=== PATIENT | female | born 1985 | race Caucasian/White ===

== ENCOUNTER 2021-03-21 06:02 | Day surgery (SDC) | payer OTHER ==
[~2021-03-21 06:02] MED LIST: Dextrose 5%-0.45% NaCl 1,000 ML IV SCH; Midazolam 1 MG/ML 2 ML SDV ONE; Sodium Chloride 0.9% 10 ML Syringe FLUSH PRN; fentaNYL 100 MCG/2 ML SDV ONE
[2021-03-21] MEDS ORDERED: Midazolam 1 MG/ML 2 ML SDV IV ONE ×7 (06:03→07:07)
[2021-03-21] MEDS ORDERED: fentaNYL 100 MCG/2 ML SDV IV ONE ×5 (06:03→07:10)
--- NOTE | 2021-03-21 07:46 | OR ---
DATE: 03/21/2021 PROCEDURE: Total colonoscopy. INSTRUMENT USED: PCF-H190DL Olympus video colonoscope. PREMEDICATIONS: Fentanyl 150 mcg intravenous, Versed 4 mg intravenous. The procedure was done under pulse oximetry, BP recording, and managed care manager. INDICATION: The patient with previous sigmoid resection for complicated diverticulitis with persistent left-sided lower abdominal pain. Colonoscopic examination is done for detection of any polypoid lesions and removal, endoscopic hemostasis therapy if needed. DESCRIPTION OF PROCEDURE: Initial rectal exam was unremarkable. Rigid anoscopy was normal. The colonoscope was passed with ease up to the ileocecal area. Photographs were taken of the normal-appearing cecum identified by double-bulged ileocecal folds. No bleeding was noted from any of the visualized areas at the commencement of the examination. The bowel preparation was found to be adequate, [place] scale 3 in all the regions, total score 9. Numerous scattered diverticula were noted, especially in the distal left colon along with significant deformity. No stricture. No vascular ectasia. No large isolated ulcerations seen. No evidence of diffuse inflammatory bowel disease in the form of friability, contact bleeding, or ulcerations. No polyp or tumor mass identified. Probing the proximal sides of folds and flexures using adequate distention and clearing up the stool material, withdrawal of the scope was made, cecum to rectum time over 9 minutes. Second look of right colon done. IMPRESSION: Diverticulosis. The patient tolerated the procedure well. [facility] /[id number]
== END 2021-03-22 09:25 | disposition home or self-care (01) ==
LOC: DL.ENDO 06:02
PROVIDERS: ATTEND Internal Medicine Gastroenterology
DX: K57.30 Diverticulosis of large intestine without perforation or abscess without bleeding (principal); K21.9 Gastro-esophageal reflux disease without esophagitis; Z98.890 Other specified postprocedural states; Z01.812 Encounter for preprocedural laboratory examination; Z20.822 Contact with and (suspected) exposure to COVID-19
CPT/HCPCS: 45378; 87635; J2250; J3010; J7042; U0002